=== PATIENT | female | born 1965 | race Caucasian/White ===

== ENCOUNTER 2018-10-10 12:45 | Outpatient (CLI) | payer MEDICAID, SELFPAY ==
[2018-10-10 14:13] LABS: Cholesterol 211 mg/dL (50-200); Glucose 97 mg/dL (70-100); HDL Cholesterol 70 mg/dL (40-60); LDL CHOLESTEROL 120 mg/dL (<100); TSH (W/Ref FT4) 1.42 uIU/mL (0.358-3.74); Triglyceride 146 mg/dL (30-150)
== END 2018-10-10 13:05 ==
PROVIDERS: PCP General Practice; Visit Provider Obstetrics & Gynecology Gynecology
DX: Z13.1 Encounter for screening for diabetes mellitus (principal); Z13.220 Encounter for screening for lipoid disorders; Z13.29 Encounter for screening for other suspected endocrine disorder; Z00.00 Encounter for general adult medical examination without abnormal findings
CPT/HCPCS: 36415; 80061; 82947; 83721; 84443

== ENCOUNTER 2018-10-10 13:15 | Outpatient (REF) | payer MEDICAID, SELFPAY ==
--- NOTE | 2018-10-10 11:40 | PAPFT_PTH ---
PATIENT: Zuleima Scott LOC: [facility] U#:[id number] AGE/SX: 53/F ROOM: RE10/10/[address]: Mayela Lang : 1965 BED: DIS: 10/10/2018 SPEC #: [id number] RECD: 10/10/18 17:59 STATUS: ALFONZO REQ #: [id number] SHERLY: 10/10/18 11:[address]: Mayela Lang DEPT: [facility] Cytology RECD BY: Ana Rowe ENTERED: 10/10/18 17:59 SP TYPE: PAPFT OTHR DR: Chinedu Gilliland Tissues: 1 - CX/ENDOCX FOR PAP SMEARS Procedures: PAP THIN PREP/UVM Screening HPV DNA PROBE Comments: [id number]
== END 2018-10-10 13:35 ==
LOC: LBN 13:15
PROVIDERS: PCP General Practice; Visit Provider Obstetrics & Gynecology Gynecology
DX: Z12.4 Encounter for screening for malignant neoplasm of cervix (principal); Z11.51 Encounter for screening for human papillomavirus (HPV)
CPT/HCPCS: 88142; 87624

== ENCOUNTER 2019-01-02 12:00 | Outpatient (CLI) | payer MEDICAID, SELFPAY ==
--- NOTE | 2019-01-02 12:33 | DI.RAD_ITS ---
SYMPTOMS/DIAGNOSIS: SOB PA AND LATERAL CHEST: The heart is normal in size. The lungs are clear. The mediastinal structures and pleura appear intact. CONCLUSION: Normal chest.
[2019-01-02 12:39] LABS: HCT 40.4 % (36.0-46.0); HGB 13.2 g/dL (12.0-15.5); Mean Corp. HGB Concentration 32.7 g/dL (32.0-36.0); Mean Corpuscular Hemoglobin 27.5 pg (27.0-33.0); Mean Corpuscular Volume 84.2 fL (80-95); Mean Platelet Volume 9.7 fL (8.0-11.0); Platelet Count 298 x1000/uL (130-400); RBC Distribution Width 15.6 % (11.7-14.6); White Blood Cell Count 6.02 k/cumm (4.4-10.8)
== END 2019-01-02 12:20 ==
PROVIDERS: PCP General Practice; Visit Provider General Practice
DX: R06.02 Shortness of breath (principal)
CPT/HCPCS: 36415; 85027; 71046

== ENCOUNTER 2019-01-09 02:04 | Outpatient (CLI) | payer MEDICAID, SELFPAY ==
--- NOTE | 2019-01-09 11:30 | ETT_ITS ---
*[facility]* *[facility]* [address] [place] [address] Stress Electrocardiography Karan protocol Date of study: 01/09/2019 *PATIENT PRESENTATION* Height: 177.8cm (70in) Blood Pressure: Weight: 95.5kg (210lb) BSA: 2.2m^2 Referring physician: Chinedu Gilliland Ordering physician: Chinedu Gilliland Impressions: Normal study after maximal exercise. Summary: 1. Stress: The target heart rate was achieved. Indication: R06.02. History: REASON FOR VISIT:PT REPORTS INTERMITTENT PALPITATIONS AND EXERCISE INDUCED CHEST PAINS WITH WALKING UP HILL FOR EXAMPLE THIS IS ASSOCIATED WITH SHORTNESS OF BREATH. CHEST PAINS SUBSIDE WITH REST. Risk factors: Family history of coronary artery disease. Obesity. Dyslipidemia. Cholesterol: 211mg/dl. HDL: 70mg/dl. LDL: 120mg/dl. Triglycerides: 146mg/dl. ALLERGIES: NO KNOWN ALLERGIES. MEDICATIONS: ARMOUR THYROID (PORK) 15 MG EVERY OTHER DAY. CHOLECALCIFEROL (VITAMIN D3) 5,000 UNITS DAILY. ASPIRIN 81 MG DAILY. Protocol: Karan protocol. Baseline ECG: SINUS RHYTHM. HR 81 BPM. T WAVE INVERTED/FLATTENING IN PRECORDIAL LEADS. Stress protocol: + +---+ + !Stage !HR !BP (mmHg) ! + +---+ + !Baseline supine !81 !124/90 (101)! + +---+ + !Baseline standing !92 !122/90 (101)! + +---+ + !Stage I; 1.7mph, 10degrees; 3 min !132!140/90 (107)! + +---+ + !Stage II; 2.5mph, 12degrees; 3 min !169!150/92 (111)! + +---+ + !Stage III; 3.4mph, 14degrees; 3 min!171! ! + +---+ + !Peak stress !174! ! + +---+ + !Recovery; 1 min !136!156/92 (113)! + +---+ + !Recovery; 3 min !100!146/86 (106)! + +---+ + !Recovery; 6 min !102!134/88 (103)! + +---+ + !Recovery; 9 min !---!128/88 (101)! + +---+ + * Stress results: Maximal heart rate during stress was 174bpm (104% of maximal predicted heart rate). The maximal predicted heart rate was 168bpm. The target heart rate was achieved. The rate-pressure product for the peak heart rate and blood pressure was 93959bd Hg/min. Stress ECG: EXERCISE PORTION OF STRESS TEST ENDED IN 7 MINUTES & 1 SECOND DUE TO FATIGUE. NORMAL HEART RATE AND BLOOD PRESSURE RESPONSE TO EXERCISE. MAX HR = 174 % OF TARGET = 103 NO ECTOPY APPROXIMATE METS ACHIEVED = 8.59 NO ANGINA NO SIGNIFICANT ST SEGMENT CHANGES. AVERAGE FUNCTIONAL CAPACITY FOR EXERCISE. Study data: Abhijeet Hamm MD supervised and was readily available during the procedure. This study was interpreted by [facility]. Study status: Routine. Consent: The risks, benefits, and alternatives to the procedure were explained to the patient and informed consent was obtained. Procedure: Initial setup. A baseline ECG was recorded. Surface ECG leads and manual cuff blood pressure measurements were monitored. Heart sounds: Normal. Lung sounds: Normal. Treadmill exercise testing was performed using the Karan protocol. Study completion: The patient tolerated the procedure well and was discharged from the lab. Discharge: The patient left the laboratory in stable condition. Birthdate: Patient birthdate: 1965. Sex: Gender: female. Study date: Study date: 01/09/2019. Study time: 00:01 AM. Signature Documentation: The Stress ECG portion of this study was interpreted by Abhijeet Hamm MD. Electronically signed by Abhijeet Hamm 01/09/2019 14:58
== END 2019-01-09 02:24 ==
PROVIDERS: PCP General Practice; Visit Provider General Practice
DX: R07.89 Other chest pain (principal); R00.2 Palpitations; R06.02 Shortness of breath; E78.5 Hyperlipidemia, unspecified; Z82.49 Family history of ischemic heart disease and other diseases of the circulatory system
CPT/HCPCS: 93017

== ENCOUNTER 2019-02-02 01:52 | Outpatient (CLI) | payer MEDICAID, SELFPAY ==
--- NOTE | 2019-02-02 14:00 | MERGE_ITS ---
*[facility]* *[facility]* [address] [place] [address] Date of study: 02/02/2019 Transthoracic Echocardiography M-mode, complete 2D, complete spectral Doppler, and color Doppler *STUDY CONCLUSIONS* Summary: 1. Left ventricle: The cavity size was normal. Systolic function was normal. The estimated ejection fraction was 60-65%. Diastolic parameters were normal. There was no evidence of elevated ventricular filling pressure by Doppler parameters. 2. Mitral valve: There was mild regurgitation. 3. Right ventricle: The cavity size was normal. Wall thickness was normal. Systolic function was normal. 4. Atrial septum: No defect or patent foramen ovale was identified. 5. Pulmonary arteries: Pulmonary systolic pressure was in the range of 25mm Hg to 35mm Hg. 6. Inferior vena cava: The vessel was patent and normal in size. The respirophasic diameter changes were in the normal range (greater than or equal to 50%), consistent with normal central venous pressure. *PATIENT PRESENTATION* Height: 177.8cm ((70in) ) S/D Pressure: 111 / 78 Weight: 97.5kg ((214.5lb) ) BSA: 2.22m^2 Test start time: 02:00 PM. Test stop time: 03:00 PM. ORDERING Chinedu Gilliland REFERRING Chinedu Gilliland PERFORMING Unknown PERFORMING [facility] [employer] CONSULTANT RT Ronel (R)(CT), RENA *PROCEDURE DATA* Procedure information: The patient was identified by two identifiers. This study was interpreted by [facility]. Pertinent images and digital data are archived for permanent storage and are available for subsequent review. No prior study was available for comparison. Study status: Routine. Transthoracic echocardiography. M-mode, complete 2D, complete spectral Doppler, and color Doppler. A Transthoracic Echocardiogram was performed. Scanning was performed from the parasternal, apical, subcostal, and suprasternal notch acoustic windows. Images were obtained using an [id number] cardiac ultrasound machine. Image quality was fair. Study completion: The patient tolerated the procedure well. History: PMH: FRED R06.02 *CARDIAC ANATOMY* Left ventricle: The cavity size was normal. Systolic function was normal. The estimated ejection fraction was 60-65%. The tissue Doppler parameters were normal. Diastolic parameters were normal. There was no evidence of elevated ventricular filling pressure by Doppler parameters. Aortic valve: Doppler: There was no stenosis. There was no regurgitation. VTI ratio of LVOT to aortic valve: 0.86. Valve area (VTI): 2.7cm^2. Indexed valve area (VTI): 1.2cm^2/m^2. Peak velocity ratio of LVOT to aortic valve: 0.84. Valve area (Vmax): 2.6cm^2. Indexed valve area (Vmax): 1.2cm^2/m^2. Mean velocity ratio of LVOT to aortic valve: 0.71. Valve area (Vmean): 2.2cm^2. Indexed valve area (Vmean): 1cm^2/m^2. Mean gradient (S): 3.7mm Hg. Peak gradient (S): 6.9mm Hg. Aorta: Aortic root: The aortic root was normal in size. Ascending aorta: The ascending aorta was normal in size. Mitral valve: Doppler: There was no evidence for stenosis. There was mild regurgitation. Valve area by pressure half-time: 3.8cm^2. Indexed valve area by pressure half-time: 1.7cm^2/m^2. Left atrium: The atrium was normal in size. Atrial septum: No defect or patent foramen ovale was identified. Right ventricle: The cavity size was normal. Wall thickness was normal. Systolic function was normal. Pulmonic valve: Doppler: There was no evidence for stenosis. There was mild regurgitation. Tricuspid valve: Doppler: There was mild regurgitation. Pulmonary artery: Poorly visualized. Pulmonary systolic pressure was in the range of 25mm Hg to 35mm Hg. Right atrium: The atrium was normal in size. Pericardium: There was no pericardial effusion. Systemic veins: Inferior vena cava: Well visualized. The vessel was patent and normal in size. The respirophasic diameter changes were in the normal range (greater than or equal to 50%), consistent with normal central venous pressure. Baseline ECG: Normal sinus rhythm. Measurements Left ventricle Value Reference LV ID, ED, PLAX 4.6 cm 3.5 - 6.0 LV ID, ES, PLAX 3.1 cm 2.1 - 4.0 LV PW thickness, ED, PLAX 1.0 cm LV end-diastolic volume, 1-p A2C 87 ml LV ejection fraction, 1-p A2C 73 % LV end-diastolic volume, 1-p A4C 74 ml LV ejection fraction, 1-p A4C 56 % LV e', lateral 0.108 m/sec LV E/e', lateral 6 LV e', medial 0.081 m/sec LV E/e', medial 8 LV e', average 0.094 m/sec LV E/e', average 7 Ventricular septum Value Reference IVS thickness, ED, PLAX 1.0 cm LVOT Value Reference LVOT ID, A-P 2.0 cm LVOT area 3.2 cm^2 LVOT peak velocity, S 1.1 m/sec LVOT mean velocity, S 0.65 m/sec LVOT VTI, S 23.3 cm LVOT peak gradient, S 4.9 mm Hg LVOT mean gradient, S 2.1 mm Hg Stroke volume (SV), LVOT DP 73 ml Stroke index (SV/bsa), LVOT DP 33 ml/m^2 Aortic valve Value Reference Aortic valve peak velocity, S 1.3 m/sec Aortic valve mean velocity, S 0.91 m/sec Aortic valve VTI, S 27.0 cm Aortic mean gradient, S 3.7 mm Hg Aortic peak gradient, S 6.9 mm Hg VTI ratio, LVOT/AV 0.86 Aortic valve area, VTI 2.7 cm^2 Velocity ratio, peak, LVOT/AV 0.84 Aortic valve area, peak velocity 2.6 cm^2 Velocity ratio, mean, LVOT/AV 0.71 Aortic valve area, mean velocity 2.2 cm^2 Aortic valve area/bsa, mean velocity 1 cm^2/m^2 Aorta Value Reference Aortic root ID, ED 2.9 cm Ascending aorta ID, A-P, S 3.1 cm Left atrium Value Reference LA ID, A-P, ES 3.4 cm LA ID/bsa, A-P 1.6 cm/m^2 <=2.2 LA area, ES, A4C 16.7 cm^2 8.8 - 23.4 LA area, ES, A2C 17 cm^2 LA volume/bsa, ES, 1-p A4C 23 ml/m^2 LA volume, ES, 2-p 48 ml LA volume/bsa, ES, 2-p 22 ml/m^2 LA/aortic root ratio 1.2 Mitral valve Value Reference Mitral E-wave peak velocity 0.62 m/sec Mitral A-wave peak velocity 0.66 m/sec Mitral deceleration time 202 ms 150 - 230 Mitral pressure half-time 59 ms Mitral E/A ratio, peak 0.94 Mitral valve area, PHT, DP 3.8 cm^2 Pulmonary veins Value Reference Pulmonary vein peak velocity, S 0.57 m/sec Pulmonary vein peak velocity, D 0.36 m/sec Pulmonary vein velocity ratio, peak, 1.57 S/D Pulmonary vein A-wave reversal peak 0.3 m/sec velocity Tricuspid valve Value Reference Tricuspid regurg peak velocity 2.5 m/sec Tricuspid peak RV-RA gradient 25.2 mm Hg Right atrium Value Reference RA area, ES, A4C 12.4 cm^2 8.3 - 19.5 Legend: (L) and (H) ana values outside specified reference range. I have personally reviewed the images and have reviewed and edited the reported findings. Electronically signed by Prabhu Arora MD 02/02/2019 17:18
== END 2019-02-02 02:12 ==
PROVIDERS: PCP General Practice; Visit Provider General Practice
DX: R06.02 Shortness of breath (principal); I34.0 Nonrheumatic mitral (valve) insufficiency
CPT/HCPCS: 93306

== ENCOUNTER 2019-11-20 09:54 | Emergency (ER) | payer BC, SELFPAY ==
--- NOTE | 2019-11-20 09:59 | ED.GENADUL_ITS ---
Discharge Plan Disposition Patient Disposition: HOME Condition: Good Discharge Details Chief Complaint: GenMedical Clinical Impression: Viral URI Primary Care Provider: Chinedu Gilliland ED Provider: Isidro Coyle Home Meds and New Rx's Prescriptions: No Action cholecalciferol (vitamin D3) 5,000 unit capsule 5,000 unit PO DAILY RF: 0 thyroid (pork) [[place] Thyroid] 15 mg tablet 15 mg PO .COMPLEX RF: 0 progesterone 100 g cream Topical PRN (Reason: vaginal bleeding) RF: 0 Discharge Instructions Instructions: Upper Respiratory Infection (ED) Additional Instructions: At this time your symptoms are consistent with a viral upper respiratory infection. It is very unlikely that this is from coronavirus. At this time you do not have the indications that the CDC would recommend for testing for coronavirus. Out of an abundance of precaution it would be reasonable to self quarantine yourself for a total of 14 days or until completely symptom-free for greater than 24 hours. It would be prudent to wear a mask at all times, always wash her hands frequently, follow-up closely with a new primary care provider. You can always call their office first. We will set you up with a new one. You will be contacted by obstetrics for follow-up with them as well for the menopausal discussion that we had. If you notice any worsening of your symptoms, or any new symptoms such as vomiting, diarrhea, fever, chills, shortness of breath, chest pain, numbness, weakness, or fainting , please call and or return immediately to the emergency department for reevaluation. Please follow up with your primary care provider as soon as possible for reassessment and reevaluation. As always, it was a pleasure participating in your medical care today. Stand Alone Forms: Work Release Referrals: [employer] ATTENDANT,[facility] [OTHER] - Mayela Lang MD [ [facility] STAFF PHYSICIAN] - Alfonso Morton MD [ CONSULTING PHYSICIAN] - Fay Sheppard [ [facility] STAFF PHYSICIAN] - Geoff Hernandez MD [ NON-[facility] STAFF PHYSICIAN] - Discharge Data Discharge Date/Time-TO BE ENTERED AT DEPARTURE: 11/20/19 10:38 Medical Decision Making This is a 54-year-old female with no significant past medical history except for chronic vaginal bleeding for which she takes progesterone, who presents today for evaluation of cough. Patient was instructed to come to the ED for evaluation by school nursing staff. Patient states that she was in [place] during the month of September, after this she went and visited her daughter in [facility] returning on November 07. There was an 8-day period of being symptom-free, after which she developed a very mild cough for the last 5 days. It started with a runny nose and congestion, and developed into a cough that was mainly present in the morning and evening. Patient denies any associated fever, shortness of breath, headache, chest pain, chest congestion, chest tightness, hemoptysis, numbness, tingling, weakness. The patient denies any recent foreign travel to high risk areas or contact with recent immigrants, Travelers, or peoples of [place] or [facility]. The patient denies any recent travel to high risk countries, or other areas of noted or significant coronavirus infection. Patient states that clinically she feels great, but is here for evaluation at the request of the medical staff at her school. Patient did did get her influenza vaccine. No other complaints at this time. Physical exam is notably unremarkable, no tachycardia, hypoxemia, tachypnea, or signs of respiratory distress or shortness of breath whatsoever. Lungs are clear, minimal congestion, no nasal tenderness or sinus tenderness. Mild runny nose. Signs and symptoms appear inconsistent with significant influenza. Secondary to her symptoms being 5 days, we have discussed risks and benefits and the patient would like to hold off on influenza testing. Her symptoms do appear viral, and notably mild at that. Currently the patient denies any concerning travel history to a high risk area, direct or known indirect exposure to an area and/or patient's with known coronavirus activity. The patient has none of the concerning red flags recommended by the CDC for coronavirus including fever, or shortness of breath. The patient looks notably clinically well, and does not demonstrate evidence of respiratory distress, significant or severe illness, or sepsis. At this time with the patient's history, clinical exam, and clinical symptoms, they are not in line or congruent with current CDC recommendations for testing. Additionally patient currently does not demonstrate symptoms indicative of admission or further observation here. At this time based on the patient's current clinical picture symptoms are likely secondary to a non- coronavirus viral illness. Out of an abundance of precaution taking into account the current level of national concern, the patient's entire clinical picture, and CDC recommendations, the patient can be discharged home. The option will be given for a 14-day quarantine, however at this time there is no clinical indication for this is the patient's clinical picture is not consistent with coronavirus. I have recommended to the patient wearing of a mask for the next 14 days, as well as good handwashing techniques. I have extensively reviewed the treatment plan and discharge instructions with the patient. I have addressed all patient concerns at this time. The patient was made aware of what symptoms to monitor for that would warrant a return to the emergency department. I also discussed the importance of calling the patient's PCP, as well as the ED for any concerns or prior to return. Discussed the plan with the patient, they demonstrate verbal understanding and agreement with our assessment and plan at this time. On a side note the patient no longer has a primary care provider secondary to Dr. Talat humphrey. She does take progesterone for chronic vaginal bleeding, states that it is slightly worse than normal, it is notably improved in the last few days, however she would like to follow-up with a physician for this. With no evidence of significant vaginal bleeding at this time, her being notably stable with no signs of anemia whatsoever, I do feel that follow-up with OB on an outpatient basis for further evaluation of menopause and management of this would be ideal. With no abdominal tenderness, fullness or signs of uterine mass on exam, I do feel she is notably stable for this plan of action. HPI General Date/Time Provider Initiated Documentation: 11/20/19 09:56 . HPI Narrative: This is a 54-year-old female with no significant past medical history except for chronic vaginal bleeding for which she takes progesterone, who presents today for evaluation of cough. Patient was instructed to come to the ED for evaluation by school nursing staff. Patient states that she was in [place] during the month of September, after this she went and visited her daughter in [facility] returning on November 07. There was an 8-day period of being symptom-free, after which she developed a very mild cough for the last 5 days. It started with a runny nose and congestion, and developed into a cough that was mainly present in the morning and evening. Patient denies any associated fever, shortness of breath, headache, chest pain, chest congestion, chest tightness, hemoptysis, numbness, tingling, weakness. The patient denies any recent foreign travel to high risk areas or contact with recent immigrants, Travelers, or peoples of [place] or [facility]. The patient denies any recent travel to high risk countries, or other areas of noted or significant coronavirus infection. Patient states that clinically she feels great, but is here for evaluation at the request of the medical staff at her school. Patient did did get her influenza vaccine. No other complaints at this time. Related Data Home Medications Medication Instructions Recorded Confirmed cholecalciferol (vitamin D3) 125 5,000 unit PO DAILY 08/27/18 11/20/19 mcg (5,000 unit) capsule progesterone TOPICAL PRN 08/27/18 10/10/18 thyroid (pork) 15 mg tablet 15 mg PO .COMPLEX 08/27/18 11/20/19 Allergies Allergy/AdvReac Type Severity Reaction Status Date / Time No Known Allergies Allergy Verified 11/20/19 10:15 Review of Systems All systems reviewed & are unremarkable except as noted in HPI and below PFSH Medical History (Updated 11/20/19 @ 10:24 by Isidro Coyle DO) Abnormal uterine bleeding (AUB) (Acute) In past reated with cyclic topical P4 and ArmourThyroid. Perimenopausal (Acute) 52yo amenorrhea x1yr then resumption of menses q4mo. Surgical History (Updated 10/11/18 @ 15:22 by Mayela Lang MD) History of bilateral tubal ligation (Resolved) Social History (Updated 10/11/18 @ 15:26 by Mayela Lang MD) Smoking/Tobacco Use Status: Former Tobacco Use Tobacco: How many years used: 20 Second Hand Exposure: Yes Alcohol Intake: current Details: 1 to 2 glasses of wine 3 times a week Drug use: Never Substance use type: does not use Adopted: No Caregiver/Support person: No Foster care: No Household members: spouse Housing: apartment Number of Children: 4 current occupation: [employer]. 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 Pets and animals: Yes Pets and animals: cat(s) and dog(s) Sexually active: Yes Current gender identity: female What is your relationship status?: Panel score (0-1 are the most socially isolated patients): 1 What type of physical activity do you participate in: walking Duration: 15-30 minutes/day Frequency: daily Seatbelt use: always Do you feel safe at home: Yes Do you feel safe in your relationship?: Yes History History 4 Para Hx # Term Pregnancies Multiple births Hx # Pregnancies Ectopic pregnancies AB induced Hx Number of Living Children 4 AB spontaneous Exam Narrative Exam Narrative: 1.Const: Well-nourished, Well-developed, appearing stated age 2.Eyes: PERRL, no conjunctival injection, and symmetrical lids. 3.ENT: Atraumatic external nose and ears. Moist MM. Neck: Symmetric, trachea midline, No thyromegaly. Minimal erythema in the posterior oropharynx. Patient demonstrates good movement of cervical neck. There is no nuchal rigidity, no nuchal tenderness. Patient is able to flex the neck without any difficulty or significant pain. Negative Kernig's and Brudzinski sign. 4.CVS: +S1/S2, No murmurs or gallops. Peripheral pulses 2+ and equal in all extremities. Brisk capillary refill in all extremities. 5.RESP: Unlabored respiratory effort. Clear to auscultation bilaterally. No wheezes rales or rhonchi 6.GI: Soft, Nontender/Nondistended, No hepatosplenomegaly. No guarding or rebound. 7.MSK: Normocephalic/Atraumatic, Extremities w/o deformity or ttp No cyanosis or clubbing, Normal movement of all extremities, no calf tenderness 8.Skin: Warm, Dry. No rashes or lesions. 9.Neuro: box turner II-XII grossly intact. Sensation grossly intact, no focal neurologic deficits. 10.Psych: (AAO) x3. Appropriate mood and affect
[2019-11-20 10:04] VITALS: BP 138/94; PULSE 80; RESP 18; TEMP 36.4; O2SAT 99
[2019-11-20 10:09] VITALS: RESP 18
--- NOTE | 2019-11-20 18:41 | NUR.NOTE ---
Referral for follow up to OB was faxed. Fe Saldana
== END 2019-11-20 10:38 | disposition home or self-care (01) ==
PROVIDERS: Emergency Provider Student in an Organized Health Care Education/Training Program; PCP General Practice
DX: J06.9 Acute upper respiratory infection, unspecified (principal); Z02.79 Encounter for issue of other medical certificate; Z87.891 Personal history of nicotine dependence
CPT/HCPCS: 99282

== ENCOUNTER 2020-08-19 02:28 | Outpatient (CLI) | payer BC, SELFPAY ==
[2020-08-22 14:19] LABS: COVID-19 RT-PCR Result NEGATIVE (Negative)
== END 2020-08-19 02:48 ==
PROVIDERS: PCP Nurse Practitioner Family; Visit Provider Surgery Plastic and Reconstructive Surgery
DX: Z11.59 Encounter for screening for other viral diseases (principal); Z01.818 Encounter for other preprocedural examination
CPT/HCPCS: U0003

== ENCOUNTER 2020-09-21 03:19 | Outpatient (CLI) | payer BC, SELFPAY ==
--- NOTE | 2020-09-21 08:00 | DI.MAMMO_ITS ---
EXAM: MG MAMMO SCREENING CLINICAL HISTORY: screening,Z12.39 TECHNIQUE: Bilateral full field digital CC and MLO mammographic images were obtained with 3D tomosyn thesis and utilizing computer aided detection (CAD). COMPARISON: None. FINDINGS: Masses/Architectural Distortion: None seen. Microcalcifications: No suspicious pleomorphic-type are seen. Skin Thickening/Nipple Retraction: None. IMPRESSION: 1. No significant interval change with no specific features of malignancy noted. 2. Unless there is more urgent need, screening mammography is recommended, as per [place] [employer] guidelines. BI-RADS Category 1 - Negative Breast Density - Category B - Scattered areas of fibroglandular density Breast density category C or D implies that the patient has dense breast tissue. Dense breast tissue is very common and is not abnormal but dense breast tissue can make it harder to find cancer on a ma mmogram. Also, dense breast tissue may increase their breast cancer risk. This information about the result of the mammogram report was provided to the patient to raise their awareness. Use this report when you speak with the patient about their risks for breast cancer, which includes their family hist ory. At that time, you may recommend for more screening tests (Ultrasound or MRI) as they might be us eful based on their risk. A negative radiographic report should not delay biopsy if a dominant or clinically suspicious mass is present. Up to ten percent of cancers are not identified on mammography. A negative report may reinforce clinical impression. Adenosis and dense breasts may obscure an underlying neoplasm. False positive reports average 6 to 10%. Patient will receive a letter notifying them of these results.
== END 2020-09-21 03:39 ==
PROVIDERS: PCP Nurse Practitioner Family; Visit Provider Nurse Practitioner Family
DX: Z12.31 Encounter for screening mammogram for malignant neoplasm of breast (principal)
CPT/HCPCS: 77063; 77067

== ENCOUNTER 2020-10-13 02:33 | Outpatient (CLI) | payer BC, SELFPAY ==
[2020-10-14 13:38] LABS: COVID-19 RT-PCR UVMMC Result Negative (Negative)
== END 2020-10-13 02:53 ==
PROVIDERS: PCP Nurse Practitioner Family; Visit Provider Nurse Practitioner Family
DX: Z20.822 Contact with and (suspected) exposure to COVID-19 (principal)
CPT/HCPCS: U0003

== ENCOUNTER 2022-12-20 12:33 | Outpatient (CLI) | payer BC, SELFPAY ==
[2022-12-20 14:37] LABS: Hemoglobin A1C 5.9 % (<5.7)
[2022-12-20 15:13] LABS: Anion Gap 8.8 mmol/L (3-11); BUN 14 mg/dL (7-18); CO2 29.2 mmol/L (21.0-32.0); CREATININE 0.8 mg/dL (0.55-1.02); Calcium 8.8 mg/dL (8.5-10.1); Calculated LDL 107 mg/dL (<100); Chloride 106 mmol/L (98-107); Cholesterol 202 mg/dL (<200); Estimated GFR 86.42 (mL/min/1.73m2); Glucose 111 mg/dL (74-106); HDL Cholesterol 66 mg/dL (40-60); Potassium 3.7 mmol/L (3.5-5.1); Sodium 144 mmol/L (136-145); Triglyceride 149 mg/dL (<150)
[2022-12-20 16:30] LABS: Vitamin D 25 Total 16.2 ng/mL (30-100)
== END 2022-12-20 12:34 | disposition home or self-care (01) ==
LOC: LBO 12:34
PROVIDERS: PCP Nurse Practitioner Family; Visit Provider Nurse Practitioner Family
DX: E78.5 Hyperlipidemia, unspecified (principal); E55.9 Vitamin D deficiency, unspecified
CPT/HCPCS: 36415; 80048; 80061; 82306; 83036

== ENCOUNTER 2023-06-28 04:52 | Outpatient (CLI) | payer BC, SELFPAY ==
[2023-06-28 16:12] LABS: HCT 41.2 % (36.0-46.0); HGB 13.7 g/dL (11.2-15.7); MCH 29.1 pg (27.0-33.0); MCHC 33.3 % (32.0-36.0); MCV 88 fL (80-95); MPV 9.2 fL (8.0-11.0); Platelet Count 315 10^3/uL (130-400); RBC 4.71 10^6/uL (3.93-5.22); RDW 12.5 % (11.7-14.6); RDW-SD 40.5 fL
[2023-06-28 16:57] LABS: C-Reactive Protein 0.45 mg/dL (0.0-0.3); TSH (W/Ref FT4) 1.12 uIU/mL (0.36-3.74)
[2023-07-01 09:06] LABS: Cyclic Citrullinated Peptide <2.5 U/mL (<5.0)
[2023-07-01 10:36] LABS: Lyme Ab w Rflx to Lyme Confirm Negative (Negative)
[2023-07-01 15:01] LABS: ANA Interpretation Negative (Negative)
[2023-07-02 16:54] LABS: Anaplasma phagocytophilum Negative (Negative); B. miyamotoi PCR Negative (Negative); Babesia divergens/MO-1 Negative (Negative); Babesia duncani Negative (Negative); Babesia microti Negative (Negative); Ehrlichia chaffeensis Negative (Negative); Ehrlichia ewingii/canis Negative (Negative); Ehrlichia muris eauclairensis Negative (Negative)
== END 2023-06-28 04:53 | disposition home or self-care (01) ==
LOC: LBO 04:52
PROVIDERS: PCP Nurse Practitioner Family; Visit Provider Nurse Practitioner Family
DX: N93.9 Abnormal uterine and vaginal bleeding, unspecified (principal); M25.50 Pain in unspecified joint; R53.83 Other fatigue
CPT/HCPCS: 36415; 85027; 86200; 87798; 84443; 86038; 86140; 86618

== ENCOUNTER 2023-10-30 02:58 | Outpatient (CLI) | payer BC, SELFPAY ==
[2023-10-30 16:08] LABS: ESR 6 mm/hr (0-30)
[2023-10-30 17:10] LABS: Anion Gap 9.9 mmol/L (3-11); C-Reactive Protein < 0.50 mg/dL (<or=0.5); CO2 29.1 mmol/L (21.0-32.0); Chloride 102 mmol/L (98-107); Potassium 3.7 mmol/L (3.5-5.1); Sodium 141 mmol/L (136-145)
[2023-10-30 21:25] LABS: Ionized Calcium 1.16 mmol/L (1.14-1.35)
== END 2023-10-30 02:59 | disposition home or self-care (01) ==
LOC: LBO 02:58
PROVIDERS: Otolaryngology Otolaryngology/Facial Plastic Surgery; PCP Nurse Practitioner Family; Visit Provider Family Medicine
DX: R41.89 Other symptoms and signs involving cognitive functions and awareness; M25.59 Pain in other specified joint
CPT/HCPCS: 36415; 80051; 82306; 85652; 82330; 86140

== ENCOUNTER → 2023-11-22 00:35 | Outpatient (CLI) | payer BC, SELFPAY ==
--- NOTE | 2023-11-22 07:15 | DI.MRI_ITS ---
Exam(s) MR IAC BRAIN WO/W EXAM: MR IAC BRAIN WO/W CLINICAL HISTORY: ? acoustic neuroma,trigeminal nerve path,numbness,tingling,asymmetric. TECHNIQUE: Multiplanar multisequence MRI of the brain and internal auditory canals was performed. CONTRAST MATERIAL: IV Contrast: 20 mL of Dotarem contrast administered. COMPARISON: No exams were available for comparison FINDINGS: VENTRICLES AND EXTRA AXIAL SPACES: Normal in size and morphology for the patient's age. HEMORRHAGE: None. CEREBRAL PARENCHYMA: No focus of restricted diffusion to suggest acute infarct. No space-occupying le carlos identified. There are few foci of hyperintense signal in the white matter on the FLAIR and T2 we ighted images. No lesions are seen adjacent to the ventricles. MIDLINE SHIFT: None. BRAINSTEM/CEREBELLUM: Normal. There is a thin well-defined fat signal intensity lesion associated wit h the tentorium cerebelli on the left most consistent with an incidental lipoma. CALVARIUM: Normal. ENHANCEMENT: No suspicious enhancement identified. VISUALIZED PARANASAL SINUSES/MASTOIDS: There are mucous retention cysts in the maxillary sinuses. Th e remaining visualized paranasal sinuses are clear. [place]: Normal flow void. PITUITARY GLAND: Unremarkable. IAC/CP ANGLE: The internal auditory canals are within normal limits. The cerebellar pontine angles ar e unremarkable. No enhancing lesions are seen. Visualized portion of the facial nerves appear within normal limits. OTHER FINDINGS: None. IMPRESSION: 1. No evidence of a mass or enhancing lesion associated with the internal auditory canals or cerebell opontine angles. 2. Few scattered hyperintense foci in the white matter on the FLAIR and T2 weighted images. These ar e nonspecific but may reflect small vessel ischemic disease. DATA REPOSITORY:
[2023-11-22] MEDS: Normal Saline Flush 10 ML SYR IVP (14:44)
[2023-11-22] MEDS: Gadoterate meglumine 20 ML SYRINGE IVP (14:44)
== END ==
PROVIDERS: PCP Nurse Practitioner Family; Visit Provider Nurse Practitioner Family
DX: R20.2 Paresthesia of skin; H91.8X3 Other specified hearing loss, bilateral
CPT/HCPCS: 70553

== ENCOUNTER 2024-06-16 18:39 | Outpatient (REF) | payer BC, SELFPAY ==
[2024-06-16 22:02] LABS: Hemoglobin A1C 5.8 % (<5.7)
[2024-06-16 22:28] LABS: ALT 34 U/L (14-59); AST 23 U/L (15-37); Alkaline Phosphatase 107 U/L (46-116); Anion Gap 7.3 mmol/L (3-11); BUN 10 mg/dL (7-18); Bilirubin, Total 0.62 mg/dL (0.2-1.0); CO2 29.7 mmol/L (21.0-32.0); CREATININE 0.7 mg/dL (0.55-1.02); Calcium 9.5 mg/dL (8.5-10.1); Calculated LDL 146 mg/dL (<100); Chloride 102 mmol/L (98-107); Cholesterol 236 mg/dL (<200); Estimated GFR 100.19 (mL/min/1.73m2); Glucose 105 mg/dL (74-106); HDL Cholesterol 66 mg/dL (40-60); Potassium 4.2 mmol/L (3.5-5.1); Sodium 139 mmol/L (136-145); TSH (W/Ref FT4) 1.44 uIU/mL (0.36-3.74); Total Protein 7.4 g/dL (6.4-8.2); Triglyceride 122 mg/dL (<150); Vitamin D 25 Total 43.2 ng/mL (30-100)
[2024-06-18 10:52] LABS: Hepatitis C Ab w Rflx HCV PCR Negative (Negative)
== END 2024-06-16 18:40 | disposition home or self-care (01) ==
LOC: LBN 18:39
PROVIDERS: PCP Nurse Practitioner Family; Visit Provider Nurse Practitioner Family
DX: E78.5 Hyperlipidemia, unspecified (principal); R73.03 Prediabetes; E55.9 Vitamin D deficiency, unspecified; N93.9 Abnormal uterine and vaginal bleeding, unspecified; N95.1 Menopausal and female climacteric states
CPT/HCPCS: 80053; 80061; 82306; 86803; 83036; 84443; 86140

== ENCOUNTER 2025-02-26 01:43 | Outpatient (CLI) | payer BC, SELFPAY ==
[2025-02-26 07:40] LABS: Abs Immature Grans 0.01 10^3/uL (0.0-0.06); Absolute Basophil Count 0.03 10^3/uL (0.0-0.2); Absolute Eosinophil Count 0.15 10^3/uL (0.0-0.7); Absolute Lymphocyte Count 2.65 10^3/uL (1.2-3.4); Absolute Monocyte Count 0.39 10^3/uL (0.1-0.8); Absolute Neutrophil Count 2.75 10^3/uL (1.2-6.7); Basophils % 0.5 %; Eosinophils % 2.5 %; HCT 44.7 % (36.0-46.0); HGB 14.8 g/dL (11.2-15.7); Immature Grans % 0.2 %; Lymphocytes % 44.3 %; MCHC 33.1 % (32.0-36.0); MCV 91 fL (80-95); MPV 9.1 fL (8.0-11.0); Monocytes % 6.5 %; Platelet Count 291 10^3/uL (130-400); RBC 4.93 10^6/uL (3.93-5.22); RDW 12.8 % (11.7-14.6); RDW-SD 42.3 fL; WBC 5.98 10^3/uL (4.4-10.8)
[2025-02-26 07:52] LABS: Hemoglobin A1C 5.8 % (<5.7)
[2025-02-26 08:07] LABS: ALT 28 U/L (14-59); AST 15 U/L (15-37); Albumin 3.8 g/dL (3.4-5.0); Alkaline Phosphatase 95 U/L (46-116); Anion Gap 7.7 mmol/L (3-11); BUN 14 mg/dL (7-18); Bilirubin, Total 0.4 mg/dL (0.2-1.0); CO2 30.3 mmol/L (21.0-32.0); CREATININE 0.7 mg/dL (0.55-1.02); Calcium 8.8 mg/dL (8.5-10.1); Chloride 103 mmol/L (98-107); Estimated GFR 99.57 (mL/min/1.73m2); Glucose 111 mg/dL (74-106); Sodium 141 mmol/L (136-145); TSH (W/Ref FT4) 1.75 uIU/mL (0.36-3.74); Total Protein 7.5 g/dL (6.4-8.2)
[2025-02-26 08:09] LABS: C-Reactive Protein < 0.50 mg/dL (<or=0.5)
[2025-02-26 08:41] LABS: Vitamin D 25 Total 30 ng/mL (30-100)
== END 2025-02-26 01:44 | disposition home or self-care (01) ==
LOC: LBO 01:43
PROVIDERS: PCP Nurse Practitioner Family; Visit Provider Nurse Practitioner Family
DX: R73.03 Prediabetes (principal); E55.9 Vitamin D deficiency, unspecified; N95.1 Menopausal and female climacteric states; E66.811 Obesity, class 1
CPT/HCPCS: 36415; 80053; 82306; 83036; 84443; 85025; 86140